=== PATIENT | male | born 1995 | race American Indian/Alaskan Native ===

== ENCOUNTER 2021-01-04 17:54 | Emergency (ER) | payer SELFPAY ==
[2021-01-04 18:49] VITALS: BP 127/79
--- NOTE | 2021-01-04 19:06 | Event Note ---
ED Screening Note ED Screening Note: anal pain that began a week ago states he is constipated and has pain with having a BM states he noticed blood with wiping he believes he may have a hemorrhoid no fever, no n/v/d PMHx none no allergies to meds This initial assessment/diagnostic orders/clinical plan/treatment(s) is/are subject to change based on patients health status, clinical progression and re- assessment by fellow clinical providers in the ED. Further treatment and workup at subsequent clinical providers discretion. Patient/guardian urged not to elope from the ED as their condition may be serious if not clinically assessed and managed. Initial orders include: acc eval
[2021-01-04] MEDS ORDERED: LIDOCAINE 2% UROJECT 10 ML JELLY UR ONE (21:50)
[2021-01-04] MEDS ORDERED: IBUPROFEN 600 MG TAB PO ONE (21:51)
--- NOTE | 2021-01-04 21:55 | Emergency Department Report ---
ED General Adult HPI - General Chief complaint: Rectal Pain Stated complaint: ANAL PAIN Time Seen by Provider: 01/04/21 19:04 Source: patient Mode of arrival: Ambulatory Limitations: No Limitations - History of Present Illness Initial comments: Patient is a 25-year-old -[place] male with no past medical history presents to the ED with complaint of acute onset rectal pain with bleeding intermittently for the last 2 days. Patient states that the rectal pain gets worse with any bowel movement resulting in bright red blood per rectum mixed with stool. Patient admits to having an anal sex but states that he has not had an anal sex in the last 2 months. Patient denies fever, chills, nausea, vomiting, dizziness, syncope, chest pain, shortness of breath, headache, cough, hematuria, dysuria, urinary frequency and urgency, constipation or abdominal pain. MD Complaint: Rectal pain and bleeding -: Sudden, days(s) (2) Location: buttocks Radiation: non-radiation Severity scale (0 -10): 5 Quality: aching, sharp Consistency: constant Improves with: none Worsens with: other (BOWEL MOVEMENT) Associated Symptoms: denies other symptoms. denies: confusion, chest pain, cough, diaphoresis, headaches, loss of appetite, malaise, shortness of breath, syncope, other Treatments Prior to Arrival: none - Related Data Previous Rx's Medication Instructions Recorded Last Taken Type Dibucaine 1% [Nupercainal] 1 applicatio MT TID #1 tube 01/04/21 Unknown Rx Hydrocortisone [Anusol-Hc 2.5% TOP 1 applic RC Q8H PRN #1 tube 01/04/21 Unknown Rx CREAM] Naproxen 500 mg PO Q12H PRN #30 tablet 01/04/21 Unknown Rx Allergies Allergy/AdvReac Type Severity Reaction Status Date / Time No Known Allergies Allergy Unverified 01/04/21 18:43 ED Review of Systems ROS: Stated complaint: ANAL PAIN Other details as noted in HPI Constitutional: denies: chills, fever Eyes: denies: eye pain, eye discharge, vision change ENT: denies: ear pain, throat pain Respiratory: denies: cough, shortness of breath, wheezing Cardiovascular: denies: chest pain, palpitations Endocrine: no symptoms reported Gastrointestinal: other (Rectal pain and bleeding). denies: abdominal pain, nausea, diarrhea Genitourinary: denies: urgency, dysuria Musculoskeletal: denies: back pain, joint swelling, arthralgia Skin: denies: rash, lesions Neurological: denies: headache, weakness, paresthesias Psychiatric: denies: anxiety, depression Hematological/Lymphatic: denies: easy bleeding, easy bruising ED Past Medical Hx - Past Medical History Previous Medical History?: No - Surgical History Past Surgical History?: No - Social History Smoking Status: Never Smoker Substance Use Type: Marijuana - Medications Home Medications: Home Medications Medication Instructions Recorded Confirmed Last Taken Type Dibucaine 1% [Nupercainal] 1 applicatio MT TID #1 tube 01/04/21 Unknown Rx Hydrocortisone [Anusol-Hc 2.5% TOP 1 applic RC Q8H PRN #1 tube 01/04/21 Unknown Rx CREAM] Naproxen 500 mg PO Q12H PRN #30 tablet 01/04/21 Unknown Rx ED Physical Exam - General Limitations: No Limitations General appearance: alert, in no apparent distress - Head Head exam: Present: atraumatic, normocephalic, normal inspection - Eye Eye exam: Present: normal appearance, PERRL, EOMI Pupils: Present: normal accommodation - ENT ENT exam: Present: normal exam, normal orophraynx, mucous membranes moist, TM's normal bilaterally, normal external ear exam - Neck Neck exam: Present: normal inspection, full ROM - Respiratory Respiratory exam: Present: normal lung sounds bilaterally. Absent: respiratory distress, wheezes, chest wall tenderness, accessory muscle use, decreased breath sounds, prolonged expiratory - Cardiovascular Cardiovascular Exam: Present: regular rate, normal rhythm, normal heart sounds. Absent: systolic murmur, diastolic murmur, rubs, gallop - GI/Abdominal GI/Abdominal exam: Present: soft, normal bowel sounds. Absent: tenderness, guarding, rebound, hyperactive bowel sounds, hypoactive bowel sounds, organomegaly, mass - Rectal Rectal exam: Present: deferred, hemorrhoids (Small palpable internal hemorrhoids above the dentate line), tenderness (Mild palpable rectal tenderness), other (Savanah araya RN career services coordinator present Mr. Seymour) - Extremities Exam Extremities exam: Present: normal inspection, full ROM, normal capillary refill - Back Exam Back exam: Present: normal inspection, full ROM. Absent: tenderness, CVA tenderness (R), CVA tenderness (L), muscle spasm, paraspinal tenderness, vertebral tenderness - Neurological Exam Neurological exam: Present: alert, oriented X3, CN II-XII intact, normal gait, reflexes normal - Psychiatric Psychiatric exam: Present: normal affect, normal mood - Skin Skin exam: Present: warm, dry, intact, normal color. Absent: rash ED Course Vital Signs 01/04/21 18:46 Temperature 99.4 F Pulse Rate 82 Respiratory 20 Rate Blood Pressure 127/79 O2 Sat by Pulse 100 Oximetry ED Medical Decision Making - Medical Decision Making This s a 25-year-old -[place] male with no past medical history presents to the ED with complaint of acute onset rectal pain with bleeding intermittently for the last 2 days. Patient states that the rectal pain gets worse with any bowel movement resulting in bright red blood per rectum mixed with stool. Patient admits to having an anal sex but states that he has not had an anal sex in the last 2 months. In the ED, patient is alert and oriented x3 and is not in distress. Physical exam in the presence of a male career services coordinator reveals mild rectal tenderness due to small internal hemorrhoids above the dentate line, no bleeding present at this time. Patient's symptoms are likely due to internal hemorrhoid bleeding as a result of constipation due to an oral tear by the hard stools. Patient was advised to increase fiber intake with his diet and to drink plenty of fluids to improve on his constipation. Patient was advised to follow-up with his primary care physician in 5 to 7 days for reevaluation. Patient was therefore discharged home on pain medications and advised to return to the ED immediately if symptoms get worse. - Differential Diagnosis Hemorrhoids; anal fissures; anal tears; cnonstipation Critical care attestation.: If time is entered above; I have spent that time in minutes in the direct care of this critically ill patient, excluding procedure time. ED Disposition Clinical Impression: Anal or rectal pain, Internal hemorrhoids Disposition: TO HOME OR SELFCARE Is pt being admited?: No Does the pt Need Aspirin: No Condition: Stable Instructions: Nonsurgical Procedures for Hemorrhoids, Care After, Hemorrhoids, [id number], Anal Fissure, Adult Additional Instructions: Apply the medication to the affected area as advised, drink plenty of fluids, ensure that your diet is rich in high fiber including leafy vegetables and fruits. Follow-up with your primary care physician in 5 to 7 days for reevaluation or return to the ED immediately if symptoms get worse. Prescriptions: Hydrocortisone [Anusol-Hc 2.5% TOP CREAM] 1 applic RC Q8H PRN #1 tube PRN Reason: Hemorrhoids Naproxen 500 mg PO Q12H PRN #30 tablet PRN Reason: Pain , Severe (7-10) Dibucaine 1% [Nupercainal] 1 applicatio MT TID #1 tube Referrals: PRIMARY CARE, [Primary Care Provider] - 3-5 Days Time of Disposition: 21:55 Print Language: YORUBA
== END 2021-01-04 22:25 | disposition home or self-care (01) ==
LOC: ED 17:54
DX: K64.8 Other hemorrhoids (principal); K62.89 Other specified diseases of anus and rectum; F12.90 Cannabis use, unspecified, uncomplicated; Z79.899 Other long term (current) drug therapy